=== PATIENT | female | born 1995 | race Caucasian/White ===

== ENCOUNTER 2016-04-02 10:44 | Emergency (ER) | payer OTHER ==
[~2016-04-02] VITALS: Ht 175.3 cm; Wt 49.9 kg
[2016-04-02] MEDS ORDERED: BACTRIM DS TAB1 EAC1 ORAL (11:23)
[2016-04-02] MEDS ORDERED: BACITRACIN15 GM TOPIC (11:23)
[2016-04-02] MEDS ORDERED: TRAMADOL HCL50 MG ORAL (11:23)
[2016-04-02] MEDS ORDERED: IBUPROFEN600 MG ORAL (11:23)
--- NOTE | 2016-04-02 11:28 | Emergency Room Report ---
History of Present Illness General Chief Complaint: Skin Rash/Abscess Source: Patient, Family Member Present Illness HPI Patient presents with pain in the area where she's had a pilonidal cyst lanced twice before. She denies any fevers. Painful to sit down. There is also some swelling there. No redness of the skin or drainage. They discussed marsupialization in the past but has not been done. Patient on vacation from [facility]. Taking ibuprofen with some relief. Pain not radiate. Pain 5/10, aching pressure. No change bowels, dysuria, not . No URI sy, chest pain, NV. Allergies: Coded Allergies: No Known Allergies (Unverified , 04/02/16) Patient History Past Medical History: see triage record Past Surgical History: other - nisha pilonidal cyst X 2 Social History: Denies: smoking Social History Narrative from [facility]. Dad is Last Menstrual Period: 03/06/16 Now: No Reviewed Nursing Documentation: PMH: Agreed, PSxH: Agreed Nursing Documentation-PMH Past Medical History: No History, Except For Review of Systems All Other Systems: negative except mentioned in HPI Physical Exam Vital Signs Date Time Temp Pulse Resp B/P Pulse Ox O2 Delivery O2 Flow Rate FiO2 04/02/16 11:08 97.9 72 16 116/73 95 Room Air General Appearance: well appearing, no apparent distress, GCS 15, non-toxic Head: normocephalic, atraumatic Eyes: bilateral eye PERRL, bilateral eye normal inspection ENT: hearing grossly normal, normal voice, moist mucus membranes Neck: full range of motion, supple Respiratory: no respiratory distress, speaking full sentences Cardiovascular #1: regular rate, rhythm Cardiovascular #2: 2+ radial (L) Gastrointestinal: normal inspection Rectal: other - see skin Musculoskeletal: back normal, gait/station normal, normal range of motion Neurologic: alert, normal gait, grossly normal Psychiatric: mood/affect normal Skin: other - area L of tailbone .5 X 1.5 cm, deep with induration without fluxuance, no erythema Medical Decision Making Diagnostic Impression: Primary Impression: Pilonidal cyst ER Course Patient with pain where pilonidal cyst has been. Ddx: abscess, cellulitis, pilonidal cyst. Not ready to be lanced yet as deep and indurated more than fluctuant. Antibiotics indicated with local care. May need to be lanced in future. Discussed this and local care. Patient stable for outpatient observation and treatment. Last Vital Signs Date Time Temp Pulse Resp B/P Pulse Ox O2 Delivery O2 Flow Rate FiO2 04/02/16 11:31 97.9 16 116/73 95 Room Air 04/02/16 11:08 72 Status: unchanged Disposition: HOME, SELF-CARE Condition: Stable Scripts Bacitracin (Bacitracin) 28.4 Gm Oint...g. 1 APPLIC TOPIC THREE TIMES A DAY, #14 GM Prov: Adair Jarquin M.D. 04/02/16 Trimethoprim/Sulfamethoxazole 160/800* (BACTRIM DS TABLET*) 1 Each Tablet 1 TAB ORAL TWICE A DAY, #14 TAB Prov: Adair Jarquin M.D. 04/02/16 Tramadol Hcl* (ULTRAM*) 50 Mg Tablet 50 MG ORAL Q6H Y for For Pain, #14 TAB 0 Refills Prov: Adair Jarquin M.D. 04/02/16 Ibuprofen* (MOTRIN*) 600 Mg Tablet 600 MG ORAL Q6H Y for For Pain, #20 TAB Prov: Adair Jarquin M.D. 04/02/16 Patient Instructions: Abscess, Cellulitis Additional Instructions: This is not ready to nisha. Warm soaks twice a day. Return if it comes to a head. I sugges you see a surgeon when you return home. Adair Jarquin M.D. Apr 02, 2016 11:28
[2016-04-02 11:30] VITALS: BP 116/73
[2016-04-02 11:31] VITALS: BP 116/73
== END 2016-04-02 11:38 | disposition home or self-care (01) ==
LOC: EMR 11:31
DX: L05.91 Pilonidal cyst without abscess (principal)
CPT/HCPCS: 99284